=== PATIENT | female | born 1985 | race Caucasian/White ===

== ENCOUNTER 2021-10-01 08:15 | Emergency (ER) | payer MEDICAID, SELFPAY ==
[~2021-10-01] VITALS: Ht 160 cm; Wt 81.6 kg
[2021-10-01 08:37] VITALS: BP_SYST 124
--- NOTE | 2021-10-01 09:00 | NUR ---
Pt presents to ER with N/V/D, covid +, skin pink and warm, respirations even and unlabored, cap refill <3, VSS.
[2021-10-01] MEDS ORDERED: KETOROLAC TROMETHAMINE 30 MG VIAL IM ONE (09:45)
--- NOTE | 2021-10-01 09:45 | NUR ---
Dr Camacho evaluating patient at bedside
--- NOTE | 2021-10-01 10:20 | NUR ---
Pt A&Ox4, VSS, respirations even and unlabored
[2021-10-01 11:15] VITALS: BP_SYST 124
--- NOTE | 2021-10-01 11:17 | NUR ---
Patient given written and verbal discharge instructions and verbalizes understanding. ER MD discussed with patient the results and treatment provided. Patient in stable condition. ID arm band removed.. No Rx given. Patient educated on pain management and to follow up with PMD. Pain Scale . Opportunity for questions provided and answered. Medication side effect fact sheet provided.
== END 2021-10-01 11:15 | disposition home or self-care (01) ==
LOC: SED 08:15
DX: U07.1 COVID-19 (principal)
CPT/HCPCS: 71045; 81025; 93005; 96372; 99283; J1885; 99284